=== PATIENT | female | born 2000 | race Two or more races ===

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

== ENCOUNTER 2021-05-26 21:14 | Emergency (ER) | payer OTHER, SELFPAY ==
[2021-05-26 21:15] VITALS: BP 101/82; PULSE 86; RESP 18; TEMP 37.1; O2SAT 97; BMI 25.8
--- NOTE | 2021-05-26 21:35 | RAD_ITS ---
STUDY: X-RAY - RIGHT ANKLE REASON FOR EXAM: Female, 20 years old. Pain after trauma TECHNIQUE: 3 view(s) of the ankle. COMPARISON: 08/25/2019 FINDINGS: Surgical hardware in the distal tibia and fibula are free of complication Normal visualized distal tibia and fibula. Normal medial and lateral malleoli. Normal tibiotalar articulation and ankle mortise. Normal visualized talus and calcaneus. The visualized subtalar, talonavicular, calcaneocuboid and tarsal articulations are normal. The soft tissue structures are unremarkable. RAD/Ankle min 3 Views IMPRESSION: No acute fracture or suspicious osseous lesion Surgical hardware in the distal tibia and fibula free of complication Electronically Signed: Todd Rivera MD at 21:54 EST , Service support ,
--- NOTE | 2021-05-26 22:06 | ED.VIS.LOWEX ---
HPI History of Present Illness Chief Complaint: Lower Extremity Injury Narrative Narrative: Patient inverted her right ankle. She has a history of prior fracture from ice skating with subsequent hardware. She has no other injuries. No proximal fibular pain or knee pain. PFSH PFSH Home Medications ibuprofen 600 mg PO 4X/DAY #30 tab 07/29/19 [Rx Last Taken Unknown] Allergy/AdvReac Type Severity Reaction Status Date / Time No Known Allergies Allergy Verified 05/26/21 21:17 Social History Smoking Status: Never smoker ROS ROS ED ROS Narrative Past medical history: none Medications: Reviewed Social history: Noncontributory Review of systems: Musculoskeletal: Ankle pain Skin: No abrasions or lacerations Neurological: No weakness or paresthesias Hematologic: No easy bleeding or easy bruising EXAM Physical Exam Narrative Exam Narrative: Physical exam General: Patient does not appear in significant distress . Head: Normocephalic, Atraumatic Neck: No C-spine tenderness Cardiovascular: Normal distal pulses Back: Nontender, Normal Inspection. Extremities: Right ankle shows lateral malleolus swelling. No foot pain. No proximal fibular tenderness. Skin: No abrasions, no lacerations Neurological: Normal strength and sensation Const Vital Signs: 05/26/21 21:15 Temperature 98.8 F Temperature Source Temporal Pulse Rate 86 Respiratory Rate 18 Blood Pressure 101/82 H Blood Pressure Mean 88 Pulse Ox 97 Oxygen Delivery Method Room Air MDM MDM MDM Narrative Medical decision making narrative: Patient has a normal x-ray I will treat conservatively and discharged in stable condition. Radiography Diagnostic Testing: Clinical Impression(s) from Imaging Studies Ankle X-Ray 05/26/21 21:35 IMPRESSION: No acute fracture or suspicious osseous lesion Surgical hardware in the distal tibia and fibula free of complication Electronically Signed: Todd Rivera MD at 21:54 EST , Service support , X-ray read by me and the radiologist does not show any fracture. There is some soft tissue swelling. Hardware appears to be intact Discharge Plan Triage Chief Complaint: Lower Extremity Injury ED Provider: Gilberto Fraser Dx/Rx/DC Orders Clinical Impression: Ankle sprain Instructions: Treating?Strains and Sprains Prescriptions: No Action ibuprofen 600 MG tablet 600 mg PO 4X/DAY Qty: 30 RF: 0 Primary Care Provider: Care Physician,No Primary Referrals: Care Physician,No Primary [Primary Care Provider] - 3-5 Days Disposition Disposition: Home, Self Care
== END 2021-05-26 22:22 | disposition home or self-care (01) ==
PROVIDERS: Emergency Provider Emergency Medicine
DX: S93.401A Sprain of unspecified ligament of right ankle, initial encounter (principal); X50.1XXA Overexertion from prolonged static or awkward postures, initial encounter
CPT/HCPCS: 73610; 99283

== ENCOUNTER 2021-06-28 12:09 | Emergency (ER) | payer OTHER, SELFPAY ==
[2021-06-28 12:09] VITALS: BP 102/73; PULSE 83; RESP 18; TEMP 36.2; O2SAT 99; BMI 26.1
--- NOTE | 2021-06-28 12:21 | CT_ITS ---
STUDY: CT ABDOMEN AND PELVIS WITHOUT CONTRAST REASON FOR EXAM: Female, 20 years old. Pain RADIATION DOSAGE (If Supplied By Facility): CTDIvol = ( 10.38 ) mGy, DLP = ( 523.86 ) mGycm TECHNIQUE: Transaxial images were obtained from the dome of the diaphragm to the symphysis pubis without oral contrast, and without intravenous contrast. Sagittal and coronal images were reconstructed. Individualized dose optimization techniques were used for this CT. COMPARISON: None. FINDINGS: The visualized lung bases are unremarkable. The visualized portions of the heart are within normal limits. Normal liver. Normal gallbladder and extrahepatic biliary system. Normal spleen. Normal pancreas. Normal bilateral adrenal glands. Normal right kidney. Normal left kidney. Normal visualized stomach. Normal small intestine. Normal colon. The appendix is visualized and appears normal. Normal abdominal aorta. Normal inferior vena cava. Normal retroperitoneum. Normal urinary bladder. 7 cm oval mass of water attenuation of the right-sided pelvis consistent with a corpus luteum cyst, physiologic cyst, par ovarian cyst, or cystadenoma. Correlation with pelvic ultrasound would be useful. Normal abdominal wall. Normal osseous structures. CT/Abdomen/Pelvis without Cont IMPRESSION: 7 cm right corpus luteum cyst, physiologic cyst, par ovarian cyst, or cystadenoma. Correlation with pelvic ultrasound may be useful. Electronically Signed: Joseluis Evans MD at 13:46 EST Tel , Service support ,
--- NOTE | 2021-06-28 12:22 | EX.ED.DYSGE1 ---
HPI History of Present Illness Chief Complaint: Abd Pain Informant: patient Narrative Narrative: Patient presents with actually left-sided abdominal pain. The triage note says right. But when I asked her about the right side she states is on the other side and she stated it wrong. She felt fine yesterday. She did eat a lot more food than normal last night but had no problems. She went to bed fine. She woke up with her alarm this morning. When she woke up the pain was there but it did not wake her up. It has been waxing and waning since then. When the pain is bad she gets nauseated. She has not vomited. She states it is getting a little bit better now. It is in the left lower quadrant and left flank. She denies any urinary symptoms. She has never had kidney stone. She has no history of any abdominal surgery. Last menstrual cycle was normal about 2-1/2 to 3 weeks ago. No pelvic discharge or bleeding or pain. Nothing specifically makes the pain better or worse. She has never had it before. PFSH PFSH Home Medications ibuprofen 600 mg PO 4X/DAY #30 tab 07/29/19 [Rx Last Taken Unknown] naproxen [Naprosyn] 500 mg PO BID PRN #20 tab 06/28/21 [Rx Last Taken Unknown] ondansetron 4 mg PO Q8H PRN #10 tab 06/28/21 [Rx Last Taken Unknown] Allergy/AdvReac Type Severity Reaction Status Date / Time No Known Allergies Allergy Verified 06/28/21 12:11 Surgical History (Updated 06/28/21 @ 12:40 by Vy Kelly) History of ankle surgery Social History Smoking Status: Never smoker ROS ROS ED Constitutional Constitutional ED: Denies chills or fever(s) ENT ENT ED: Denies rhinorrhea Cardiovascular Cardiovascular: Denies chest pain or palpitations Respiratory/Chest Respiratory/Chest: Denies cough, dyspnea or sputum Gastrointestinal Gastrointestinal: Reports abdominal pain and nausea; Denies constipation, diarrhea, melena or vomiting Genitourinary Genitourinary ED: Denies dysuria, hematuria or urinary frequency Musculoskeletal Musculoskeletal: Reports back pain and other Details: Left flank pain. ; Denies arthralgias, myalgias or neck pain Integumentary Denies rash Neurologic Neurologic: Denies headache(s) or weakness Psychiatric Psychiatric: Denies anxiety or depression Endocrine Endocrinology: Denies polydipsia or polyuria Allergic/Immunologic Allergic/Immunologic ED: Denies urticaria EXAM Physical Exam Const Vital Signs: 06/28/21 12:09 06/28/21 14:57 06/28/21 16:12 Temperature 97.1 F L Temperature Source Temporal Pulse Rate 83 74 67 Respiratory Rate 18 14 16 Blood Pressure 102/73 110/61 110/61 Blood Pressure Mean 82 77 77 Pulse Ox 99 99 99 Oxygen Delivery Method Room Air Patient does look uncomfortable. However, she just had an IV placed and she was quite nervous about this. Positive well nourished and well developed General Appearance ED: well developed HEENT Reports moist mucous membranes Negative for trauma or tenderness Eyes General Eye ED: Negative for pale conjunctiva or scleral icterus Neck no JVD Chest Wall inspection of chest normal Resp normal respiratory effort and clear to auscultation bilaterally Effort and Inspection: Negative for pain with movement Auscultation: Negative for rales, rhonchi or wheezes Cardio regular rate and regular rhythm GI normal to inspection, nondistended, normoactive bowel sounds GI Narrative: Patient had some very mild left lower quadrant tenderness. No rebound or guarding. No tenderness down into the pelvic area. She does have some CVA tenderness though. Palpation: soft Back/Spine Negative for no CVA tenderness Back/Spine Narrative: No rash or vesicles seen. General Back: CVA tenderness Extremity normal to inspection General Extremety ED: Negative for edema or tenderness General Extremity: Negative for edema Neuro Sensorium / Orientation: alert Skin no rashes or lesions noted MDM MDM MDM Narrative Medical decision making narrative: Patient's CBC shows normal white count hemoglobin and platelets. Electrolytes show no marked abnormalities. Glucose is normal. is negative. Urinalysis shows squamous epithelial cells but no sign of infection. CT scan shows a 7 cm right-sided cyst. I went back and talked with the patient. Her pain is really on the left. When I press on the right she states she feels little pressure but it does not hurt. Again, she denies vaginal bleeding or discharge. However, it is possible to have pain opposite the side of a torsion or other pathology. For this reason we did do ultrasound because of the size of the cyst. It does verify cyst but there is no indication of torsion. On recheck patient is comfortable. I will get her home on meds for pain. I will get her something for nausea in case that recurs. We discussed returning if her pain increases, she develops fever, vomiting or other symptoms. Lab Data Attestation: I reviewed the patient's lab results. Labs: Laboratory Results - last 24 hr 06/28/21 06/28/21 06/28/21 12:15 12:15 12:15 WBC 8.3 RBC 4.81 Hgb 13.4 Hct 40.1 MCV 83.4 MCH 27.9 MCHC 33.4 RDW Std Deviation 38.6 RDW Coeff of Tyree 12.8 Plt Count 252 MPV 9.5 Immature Gran % (Auto) 0.200 Neut % (Auto) 64.0 Lymph % (Auto) 29.4 [place] % (Auto) 5.5 Eos % (Auto) 0.4 Baso % (Auto) 0.5 Absolute Neuts (auto) 5.3 Absolute Lymphs (auto) 2.45 Nucleated RBC % 0 Sodium 140 Potassium 4.0 Chloride 109 H Carbon Dioxide 25.0 Anion Gap 6 BUN 10 Creatinine 0.74 Estim Creat Clear Calc 123.35 Est GFR (MDRD) Af Amer 130 Est GFR (MDRD) Non-Af 107 BUN/Creatinine Ratio 13.6 Glucose 93 Calcium 9.0 Serum , Qual NEGATIVE Urine Color Urine Clarity Urine pH Ur Specific [place] [employer] Urine Protein Urine Glucose (UA) Urine Ketones Urine Occult Blood Urine Nitrite Urine Bilirubin Urine Urobilinogen Ur Leukocyte Esterase Urine RBC Urine WBC Ur Squamous Epith Cells Urine Bacteria Urine Mucus 06/28/21 13:52 WBC RBC Hgb Hct MCV MCH MCHC RDW Std Deviation RDW Coeff of Tyree Plt Count MPV Immature Gran % (Auto) Neut % (Auto) Lymph % (Auto) [place] % (Auto) Eos % (Auto) Baso % (Auto) Absolute Neuts (auto) Absolute Lymphs (auto) Nucleated RBC % Sodium Potassium Chloride Carbon Dioxide Anion Gap BUN Creatinine Estim Creat Clear Calc Est GFR (MDRD) Af Amer Est GFR (MDRD) Non-Af BUN/Creatinine Ratio Glucose Calcium Serum , Qual Urine Color Yellow Urine Clarity Clear Urine pH 8.0 Ur Specific [place] [employer] 1.010 Urine Protein Negative Urine Glucose (UA) Normal Urine Ketones Negative Urine Occult Blood Negative Urine Nitrite Negative Urine Bilirubin Negative Urine Urobilinogen Normal Ur Leukocyte Esterase Negative Urine RBC 0 SEEN Urine WBC 0 SEEN Ur Squamous Epith Cells 10-25 SEEN Urine Bacteria 1+ Urine Mucus 0 SEEN Radiography Diagnostic Testing: Clinical Impression(s) from Imaging Studies Abdomen/Pelvis CT 06/28/21 12:21 IMPRESSION: 7 cm right corpus luteum cyst, physiologic cyst, par ovarian cyst, or cystadenoma. Correlation with pelvic ultrasound may be useful. Electronically Signed: Joseluis Evans MD at 13:46 EST Tel , Service support , Transvaginal US 06/28/21 14:17 IMPRESSION: 7 cm right corpus luteum cyst, physiologic cyst, par ovarian cyst, or cystadenoma. No ovarian torsion. Electronically Signed: Joseluis Evans MD at 16:09 EST Tel , Service support , Discharge Plan Triage Chief Complaint: Abd Pain ED Provider: Philip Slater Dx/Rx/DC Orders Clinical Impression: Acute abdominal pain in left flank, Ovarian cyst Instructions: Abdominal Pain, ED Ovarian Cyst Prescriptions: New ondansetron 4 mg tablet,disintegrating 4 mg PO Q8H PRN (Reason: nausea and vomiting) Qty: 10 RF: 0 naproxen [Naprosyn] 500 mg tablet 500 mg PO BID PRN (Reason: pain) Qty: 20 RF: 0 No Action ibuprofen 600 MG tablet 600 mg PO 4X/DAY Qty: 30 RF: 0 Primary Care Provider: Care Physician,No Primary Referrals: Leni Neri DO [STAFF PHYSICIAN] - 3-5 Days Care Physician,No Primary [Primary Care Provider] - Disposition Disposition: Home, Self Care
[2021-06-28] MEDS: Morphine 4 MG/ML Syringe IV ×2 (12:34→14:51)
[2021-06-28] MEDS: Ondansetron 4 MG/2 ML Vial IV (12:34)
[2021-06-28] MEDS: 0.9% Normal Saline 1,000 ML 1000 ML IV (12:35)
[2021-06-28 12:36] LABS: Absolute Lymphocyte Count 2.45 X10^3/uL (0.83-4.51); Absolute Neutrophil Count 5.3 X10^3/uL (2.0-7.7); Basophil# 0.04 X10^3/uL; Basophil% 0.5 % (0-1); Eosinophil# 0.03 X10^3/uL; Eosinophils% 0.4 % (0-5); Hematocrit 40.1 % (37-47); Hemoglobin 13.4 g/dL (12.0-15.0); Lymphocyte # 2.45 X10^3/ul (0.83-4.51); Lymphocyte % 29.4 % (19-41); Mean Corp Hgb Conc 33.4 g/dL (32-36); Mean Corpuscular Hgb 27.9 pg (27.0-32.0); Mean Corpuscular Volume 83.4 fL (81-99); Mean Platelet Vol. 9.5 fl (6.2-12.0); Monocyte# 0.46 X10^3/uL; Monocyte% 5.5 % (0-10); NRBC Flagged by Analyzer 0 % (0-5); Neutrophil # 5.34 X10^3/uL (2.7-7.7); Platelet Count 252 K/mm3 (150-450); RBC Distribution Width CV 12.8 % (11.6-14.6); RBC Distribution Width SD 38.6 fl (35.1-43.9); Red Blood Count 4.81 M/mm3 (4.2-5.4); White Blood Count 8.3 K/mm3 (4.4-11.0)
--- NOTE | 2021-06-28 12:41 | ED.RN ---
pain to abd around to rt flank. placed warm blankets to flank/side and lower abd
[2021-06-28 12:44] LABS: Internal QC Validated? YES +Cl - CLEAR BKGD; Pregnancy, Serum, hCG Quali. NEGATIVE Negative
[2021-06-28 12:49] LABS: Anion Gap 6 (5-15); BUN 10 mg/dL (7-18); BUN/Creat Ratio 13.6 RATIO (10-20); Chloride 109 mmol/L (98-107); Creatinine, Serum 0.74 mg/dL (0.55-1.02); EST Glomerular Filtration Rate 107 mL/min (>60); Est Glom Filt Rate - Afr Amer 130 mL/min (>60); Estimated Creatinine Clearance 123.35 ml/min; Glucose 93 mg/dL (74-106); Sodium Level 140 mmol/L (136-145)
[2021-06-28 14:04] LABS: Mucous, Urine 0 SEEN /hpf (<or=2+); Red Blood Cells-Urine 0 SEEN /hpf (0-5); White Blood Cells 0 SEEN /hpf (0-5)
[2021-06-28 14:12] LABS: Color, Urine Yellow (Yellow); Glucose, Dipstick Normal (Normal); Ketone-Dipstick Negative (Negative); Leukocyte Esterase-Dipstick Negative /ul (Negative); Nitrite-Dipstick Negative (Negative); Occult Blood-Urine Negative /ul (Negative); Protein-Dipstick Negative (Negative); Urine Bilirubin Dipstick Negative (Negative); Urine Clarity Clear (Clear); Urine Urobilinogen Normal (Normal)
--- NOTE | 2021-06-28 14:17 | US_ITS ---
STUDY: ULTRASOUND TRANSVAGINAL CLINICAL: Female, 20 years old. Ovarian cyst rule out torsion TECHNIQUE: Transvaginal COMPARISON: CT earlier today FINDINGS: Normal uterine size measuring 7.4 x 4.9 x 3.9 cm in maximal craniocaudal dimension. There are no myometrial masses. Normal endometrial thickness measuring 6 mm. There are no endometrial masses, and there is no fluid in the endometrial cavity. Normal uterine cervix. Enlarged right ovary, measuring 8.9 x 6.5 x 6.9 cm. There is a 7 cm oval anechoic mass with increased through transmission consistent with a corpus luteum cyst, physiologic cyst, par ovarian cyst, or cystadenoma.. Normal left ovary, measuring 4.0 x 3.4 x 3.4 cm. There are multiple follicles without a dominant cyst. There is a small amount of free fluid in the pelvis. Polycystic ovary disease: No. US/Transvaginal Non- IMPRESSION: 7 cm right corpus luteum cyst, physiologic cyst, par ovarian cyst, or cystadenoma. No ovarian torsion. Electronically Signed: Joseluis Evans MD at 16:09 EST Tel , Service support ,
[2021-06-28 14:19] LABS: Bacteria 1+ /hpf (None Seen); Squamous Epithelial Cells - UA 10-25 SEEN /hpf (5-10)
[2021-06-28 14:57] VITALS: BP 110/61; PULSE 74; RESP 14; O2SAT 99
[2021-06-28 16:12] VITALS: BP 110/61; PULSE 67; RESP 16; O2SAT 99
[2021-06-28 16:40] VITALS: BP 112/61; PULSE 62; RESP 16; O2SAT 99
== END 2021-06-28 16:42 | disposition home or self-care (01) ==
PROVIDERS: Emergency Provider Emergency Medicine
DX: R10.32 Left lower quadrant pain (principal); N83.201 Unspecified ovarian cyst, right side
CPT/HCPCS: 74176; 76830; 80048; 81001; 84703; 85025; 93976; 96374; 96375; 96376; 99284; J7030; A4216; J2405

== ENCOUNTER 2021-09-05 11:01 | Outpatient (CLI) | payer OTHER, SELFPAY | END 2021-09-05 23:59 | disposition home or self-care (01) | LOC: IMMUN 09-09 11:02 | PROVIDERS: Visit Provider Family Medicine | DX: Z23 Encounter for immunization (principal) ==

== ENCOUNTER 2021-11-23 15:25 | Emergency (ER) | payer OTHER, SELFPAY ==
[2021-11-23 15:26] VITALS: BP 110/79; PULSE 115; RESP 22; TEMP 36.6; O2SAT 92; BMI 26.7
--- NOTE | 2021-11-23 15:59 | EDS_ITS ---
HPI History of Present Illness Chief Complaint: Flank Pain Informant: patient Onset/Context/Timing Onset: Yesterday Context: Gradual Onset Timing: Continuous Quality: Sharp, dull Location: Left flank and left lower quadrant Worsened by: Nothing Relieved by: Nothing Narrative Narrative: Patient presents with left flank pain that began last evening. Patient states it is gradually getting worse. Patient states the pain is constant. Patient states the pain is sharp at times and dull at times. Patient states pain is over the left flank and left lower quadrants. Patient states nothing makes it better nothing makes it worse. Patient denies any fevers or chills. Patient denies any nausea or vomiting. Patient denies any dysuria or hematuria. [facility] Medical History (Updated 11/23/21 @ 19:[address] Duane Howell DO) Depression Home Medications bupropion HCl 200 mg PO DAILY 11/23/21 [History Last Taken Unknown] hydrocodone-acetaminophen 1 tab PO Q6H PRN PRN 3 Days #10 tablet 11/23/21 [Rx Last Taken Unknown] lamotrigine 100 mg PO QHS 11/23/21 [History Last Taken Unknown] Allergy/AdvReac Type Severity Reaction Status Date / Time No Known Allergies Allergy Verified 11/23/21 15:26 Surgical History History of ankle surgery Social History Smoking Status: Never smoker ROS ROS ED Constitutional Constitutional ED: Denies chills or fever(s) Eyes Eyes: Denies blurry vision or change in vision ENT ENT ED: Denies rhinorrhea or sore throat Cardiovascular Cardiovascular: Denies chest pain or palpitations Respiratory/Chest Respiratory/Chest: Denies cough or dyspnea Gastrointestinal Gastrointestinal: Reports abdominal pain; Denies nausea or vomiting Genitourinary Genitourinary ED: Denies dysuria or hematuria Musculoskeletal Musculoskeletal: Denies back pain or neck pain Integumentary Denies abscess or rash Neurologic Neurologic: Denies headache(s) or weakness Allergic/Immunologic Allergic/Immunologic ED: Denies mouth swelling or urticaria EXAM Physical Exam Const Vital Signs: 11/23/21 15:26 11/23/21 16:59 Temperature 97.9 F Temperature Source Temporal Pulse Rate 115 H Respiratory Rate 22 H Respiratory Effort Normal Non-Labored Respiratory Pattern Normal Blood Pressure 110/79 Blood Pressure Mean 89 Pulse Ox 92 Oxygen Delivery Method Room Air Positive well nourished and well developed General Appearance ED: well developed HEENT Reports moist mucous membranes Neck supple and no JVD Resp normal respiratory effort and clear to auscultation bilaterally Cardio regular rate, regular rhythm and no murmurs GI normal to inspection, nondistended, normoactive bowel sounds Palpation: soft and tender LLQ; Negative for guarding or rebound tenderness present Back/Spine General Back: CVA tenderness left Extremity normal to inspection General Extremety ED: Negative for edema or tenderness General Extremity: Negative for edema Neuro oriented x3, CN's II-XII intact bilaterally and no sensory deficits noted Sensorium / Orientation: alert Motor Exam: strength 5/5 throughout Psych mental status grossly normal Skin no rashes or lesions noted MDM MDM MDM Narrative Medical decision making narrative: Patient was given IV fluids, morphine, and Zofran. CBC was within normal limits. Comprehensive metabolic profile was normal. Serum hCG was negative. Urinalysis does not show any evidence of urinary tract infection or hematuria. CT scan of the abdomen and pelvis was obtained. There is no evidence of ureteral calculus or urinary obstruction. There is a large right ovarian cyst measuring 7.8 cm in diameter. There is also a small left ovarian cyst measuring 1.9 cm in diameter. There is mild constipation. This was interpreted by the radiologist and reviewed by myself. Prior to CT scan, patient told nursing staff that her pain was starting to return. Patient was given a repeat dose of morphine. On reevaluation, patient states she is feeling better. Patient was given a prescription for a short course of [place]. Patient was instructed to follow-up with her primary care physician and [employer] in 3 to 5 days. Patient understood and was agreeable with the plan. All questions were answered. Lab Data Attestation: I reviewed the patient's lab results. Labs: Laboratory Results - last 24 hr 11/23/21 11/23/21 11/23/21 16:20 16:20 16:20 WBC 7.3 RBC 5.36 Hgb 15.1 H Hct 43.7 MCV 81.5 MCH 28.2 MCHC 34.6 RDW Std Deviation 36.5 RDW Coeff of Tyree 12.3 Plt Count 273 MPV 9.2 Immature Gran % (Auto) 0.300 Neut % (Auto) 59.5 Lymph % (Auto) 32.4 [place] % (Auto) 6.8 Eos % (Auto) 0.7 Baso % (Auto) 0.3 Absolute Neuts (auto) 4.3 Absolute Lymphs (auto) 2.35 Nucleated RBC % 0 Sodium 139 Potassium 3.7 Chloride 106 Carbon Dioxide 25.0 Anion Gap 8 BUN 8 Creatinine 0.80 Estim Creat Clear Calc 105.01 Est GFR (MDRD) Af Amer 118 Est GFR (MDRD) Non-Af 97 BUN/Creatinine Ratio 10.0 Glucose 82 Calcium 9.4 Total Bilirubin 1.00 AST 14 L ALT 22 Alkaline Phosphatase 73 Total Protein 7.8 Albumin 4.4 Globulin 3.4 Albumin/Globulin Ratio 1.3 Serum , Qual NEGATIVE Urine Color Urine Clarity Urine pH Ur Specific [place] Urine Protein Urine Glucose (UA) Urine Ketones Urine Occult Blood Urine Nitrite Urine Bilirubin Urine Urobilinogen Ur Leukocyte Esterase Urine RBC Urine WBC Ur Squamous Epith Cells Urine Bacteria Urine Mucus 11/23/21 17:58 WBC RBC Hgb Hct MCV MCH MCHC RDW Std Deviation RDW Coeff of Tyree Plt Count MPV Immature Gran % (Auto) Neut % (Auto) Lymph % (Auto) [place] % (Auto) Eos % (Auto) Baso % (Auto) Absolute Neuts (auto) Absolute Lymphs (auto) Nucleated RBC % Sodium Potassium Chloride Carbon Dioxide Anion Gap BUN Creatinine Estim Creat Clear Calc Est GFR (MDRD) Af Amer Est GFR (MDRD) Non-Af BUN/Creatinine Ratio Glucose Calcium Total Bilirubin AST ALT Alkaline Phosphatase Total Protein Albumin Globulin Albumin/Globulin Ratio Serum , Qual Urine Color Yellow Urine Clarity Clear Urine pH 7.0 Ur Specific [place] 1.010 Urine Protein Negative Urine Glucose (UA) Normal Urine Ketones 50 H Urine Occult Blood Negative Urine Nitrite Negative Urine Bilirubin Negative Urine Urobilinogen Normal Ur Leukocyte Esterase Negative Urine RBC 0 SEEN Urine WBC 0 SEEN Ur Squamous Epith Cells 0-5 SEEN Urine Bacteria 0 SEEN Urine Mucus 0 SEEN Radiography Diagnostic Testing: Clinical Impression(s) from Imaging Studies Abdomen/Pelvis CT 11/23/21 16:02 IMPRESSION: 1. Normal kidneys without obstructive uropathy. No pyelonephritis. Normal bladder without evidence of a cystitis. 2. Large 7.8 cm diameter right ovarian simple cyst. Smaller 1.9 cm diameter left ovarian simple cyst. 3. Normal uterus-chest deviated towards the left. 4. Mild constipation. 5. No appendicitis, diverticulitis, colitis, or intestinal obstruction. 6. No other significant abnormalities are present. Electronically Signed: Musa Redman MD at 18:02 EDT , Discharge Plan Triage Chief Complaint: Flank Pain ED Provider: Duane Howell Dx/Rx/DC Orders Clinical Impression: Left lower quadrant abdominal pain, Ovarian cyst Instructions: ED Abdominal Pain Unkn Cause Fem, ED Ovarian Cyst Prescriptions: New hydrocodone-acetaminophen [hydrocodone-acetaminophen] 1 TABLET tablet 1 tab PO Q6H PRN PRN (Reason: Pain) 3 Days Qty: 10 RF: 0 No Action bupropion HCl 100 mg tablet 200 mg PO DAILY RF: 0 lamotrigine 100 mg tablet 100 mg PO QHS RF: 0 Primary Care Provider: Care Physician,No Primary Referrals: Lesia Aaron MD [STAFF PHYSICIAN] - 3-5 Days Bianca Bai DO [STAFF PHYSICIAN] - 3-5 Days Care Physician,No Primary [Primary Care Provider] - Disposition Disposition: Home, Self Care
--- NOTE | 2021-11-23 16:02 | CT_ITS ---
STUDY: CT ABDOMEN AND PELVIS WITHOUT CONTRAST ENHANCEMENT OF 1718 HOURS ON 11/23/2021 REASON FOR EXAM: 21-year-old female with left flank pain. RADIATION DOSAGE (If Supplied By Facility): CTDIvol = ( 7.64 ) mGy, DLP = ( 370.10 ) mGycm TECHNIQUE: Transaxial images were obtained from the dome of the diaphragm to the symphysis pubis without oral contrast, and without intravenous contrast. Sagittal and coronal images were reconstructed. COMPARISON: 06/28/2021. FINDINGS: The visualized lung bases are unremarkable. The visualized portions of the heart are within normal limits. Normal liver. Normal gallbladder and extrahepatic biliary system; no cholelithiasis or cholecystitis.. Normal spleen. Normal pancreas; no pancreatitis or pancreatic mass lesions.. Normal bilateral adrenal glands. Normal kidneys without obstructive uropathy. No pyelonephritis. Normal visualized stomach. Normal small intestine. Mild constipation. No diverticulitis, colitis, intestinal obstruction The appendix is visualized and appears normal. No appendicitis. Normal abdominal aorta. Normal inferior vena cava. Normal retroperitoneum. Normal urinary bladder. No evidence of a cystitis. Presence of a large 7.8 cm diameter right ovarian cyst. There is a 1.9 cm simple left ovarian cyst. Normal uterus, deviated towards the left.. Normal abdominal wall. Normal osseous structures. CT/Abdomen/Pelvis without Cont IMPRESSION: 1. Normal kidneys without obstructive uropathy. No pyelonephritis. Normal bladder without evidence of a cystitis. 2. Large 7.8 cm diameter right ovarian simple cyst. Smaller 1.9 cm diameter left ovarian simple cyst. 3. Normal uterus-chest deviated towards the left. 4. Mild constipation. 5. No appendicitis, diverticulitis, colitis, or intestinal obstruction. 6. No other significant abnormalities are present. Electronically Signed: Musa Redman MD at 18:02 EDT ,
[2021-11-23] MEDS: Morphine 4 MG/ML Syringe IV ×2 (16:20→16:57)
[2021-11-23] MEDS: Ondansetron 4 MG/2 ML Vial IV (16:20)
[2021-11-23] MEDS: 0.9% Normal Saline 1,000 ML 1000 ML IV (16:21)
[2021-11-23 16:48] LABS: Internal QC Validated? YES +Cl - CLEAR BKGD; Pregnancy, Serum, hCG Quali. NEGATIVE Negative
[2021-11-23 16:49] LABS: Absolute Lymphocyte Count 2.35 X10^3/uL (0.83-4.51); Absolute Neutrophil Count 4.3 X10^3/uL (2.0-7.7); Basophil# 0.02 X10^3/uL; Basophil% 0.3 % (0-1); Eosinophil# 0.05 X10^3/uL; Eosinophils% 0.7 % (0-5); Hematocrit 43.7 % (37-47); Hemoglobin 15.1 g/dL (12.0-15.0); Lymphocyte # 2.35 X10^3/ul (0.83-4.51); Lymphocyte % 32.4 % (19-41); Mean Corp Hgb Conc 34.6 g/dL (32-36); Mean Corpuscular Hgb 28.2 pg (27.0-32.0); Mean Corpuscular Volume 81.5 fL (81-99); Mean Platelet Vol. 9.2 fl (6.2-12.0); Monocyte# 0.49 X10^3/uL; Monocyte% 6.8 % (0-10); NRBC Flagged by Analyzer 0 % (0-5); Neutrophil # 4.32 X10^3/uL (2.7-7.7); Neutrophil % 59.5 % (47-70); Platelet Count 273 K/mm3 (150-450); RBC Distribution Width CV 12.3 % (11.6-14.6); RBC Distribution Width SD 36.5 fl (35.1-43.9); Red Blood Count 5.36 M/mm3 (4.2-5.4); White Blood Count 7.3 K/mm3 (4.4-11.0)
[2021-11-23 16:57] LABS: ALB/GLOB Ratio 1.3 RATIO (0.9-2.4); AST(SGOT) 14 U/L (15-37); Alanine Aminotransfer ALT/SGPT 22 U/L (13-56); Albumin, Serum 4.4 g/dL (3.2-5.0); Alkaline Phosphatase 73 U/L (45-117); Anion Gap 8 (5-15); BUN 8 mg/dL (7-18); Calcium,Total 9.4 mg/dL (8.5-10.1); Chloride 106 mmol/L (98-107); EST Glomerular Filtration Rate 97 mL/min (>60); Est Glom Filt Rate - Afr Amer 118 mL/min (>60); Estimated Creatinine Clearance 105.01 ml/min; Globulin 3.4 g/dL (2.2-4.2); Glucose 82 mg/dL (74-106); Potassium 3.7 mmol/L (3.5-5.1); Protein, Total 7.8 g/dL (6.4-8.2); Sodium Level 139 mmol/L (136-145)
[2021-11-23 18:24] LABS: Bacteria 0 SEEN /hpf (None Seen); Mucous, Urine 0 SEEN /hpf (<or=2+); Red Blood Cells-Urine 0 SEEN /hpf (0-5); White Blood Cells 0 SEEN /hpf (0-5)
[2021-11-23 18:25] LABS: Color, Urine Yellow (Yellow); Glucose, Dipstick Normal (Normal); Ketone-Dipstick 50 mg/dl (Negative); Leukocyte Esterase-Dipstick Negative /ul (Negative); Nitrite-Dipstick Negative (Negative); Occult Blood-Urine Negative /ul (Negative); Protein-Dipstick Negative (Negative); Urine Bilirubin Dipstick Negative (Negative); Urine Clarity Clear (Clear); Urine Urobilinogen Normal (Normal)
[2021-11-23 18:31] LABS: Squamous Epithelial Cells - UA 0-5 SEEN /hpf (5-10)
[2021-11-23 19:14] VITALS: BP 112/84; PULSE 98; RESP 17; O2SAT 97
== END 2021-11-23 19:52 | disposition home or self-care (01) ==
PROVIDERS: Emergency Provider Emergency Medicine; Visit Provider Emergency Medicine
DX: N83.209 Unspecified ovarian cyst, unspecified side (principal); R10.32 Left lower quadrant pain; F32.A Depression, unspecified
CPT/HCPCS: 74176; 80053; 81001; 84703; 85025; 96361; 96374; 96375; 96376; 99284; J7030; A4216; J2405

== ENCOUNTER 2021-11-24 15:53 | Emergency (ER) | payer OTHER, SELFPAY ==
[2021-11-24 15:53] VITALS: PULSE 102; RESP 16; TEMP 36.3; O2SAT 99; BMI 27.5
[2021-11-24 16:41] VITALS: BP 114/65; PULSE 94; RESP 16; O2SAT 98
--- NOTE | 2021-11-24 16:49 | US_ITS ---
STUDY: ULTRASOUND TRANSVAGINAL CLINICAL: Female, 21 years old. pelvic pain TECHNIQUE: Transvaginal COMPARISON: CT 11/23/2021, ultrasound 06/28/2021 FINDINGS: Normal uterine size measuring 8.3 x 4.9 x 3.6 cm in maximal craniocaudal dimension. There are no myometrial masses. Normal endometrial thickness measuring 9 mm. There are no endometrial masses, and there is no fluid in the endometrial cavity. Normal uterine cervix. Normal right ovary, measuring 4.0 x 2.5 x 2.0 cm. There are multiple follicles without a dominant cyst. Normal left ovary, measuring 6.0 x 3.4 x 4.2 cm. There are multiple follicles without a dominant cyst. There is a small amount of free fluid in the pelvis. There is a 7 cm oval anechoic mass with increased transmission of the anterior fundus the uterus and adjacent to the right and left ovary. Differential diagnosis includes a physiologic cyst, par ovarian cyst, or cystadenoma. Follow-up ultrasound is recommended in one year. Polycystic ovary disease: No. US/Transvaginal Non- IMPRESSION: No change in the 7 cm simple cystic mass in the pelvis anterior to the fundus the uterus and adjacent to both ovaries. Differential diagnosis includes a physiologic cyst, par ovarian cyst, or cystadenoma. Follow-up ultrasound is recommended in one year. Electronically Signed: Joseluis Evans MD at 20:38 EDT ,
--- NOTE | 2021-11-24 16:51 | EX.ED.DYSGE1 ---
HPI History of Present Illness Chief Complaint: Abd Pain Narrative Narrative: Patient presents with left pelvic pain, she was seen yesterday and diagnosed with a simple right-sided ovarian cyst, she continues to have left-sided pelvic pain, she was given a [place] for analgesia but she is too nauseated to take it. She has no fever or chills. She is denying any dysuria or hematuria. She has no urinary symptoms otherwise. No vaginal bleeding. She had a full work-up yesterday including a negative test and blood work and CAT scan. [facility] Medical History Depression Ovarian cyst Home Medications bupropion HCl 200 mg PO DAILY 11/23/21 [History Last Taken Unknown] hydrocodone-acetaminophen 1 tab PO Q6H PRN PRN 3 Days #10 tablet 11/23/21 [Rx Last Taken Unknown] lamotrigine 100 mg PO QHS 11/23/21 [History Last Taken Unknown] ondansetron 4 mg PO Q8H PRN #20 tab 11/24/21 [Rx Last Taken Unknown] Allergy/AdvReac Type Severity Reaction Status Date / Time No Known Allergies Allergy Verified 11/24/21 15:56 Surgical History History of ankle surgery Social History Smoking Status: Never smoker ROS ROS ED ROS Narrative Past medical history: Reviewed Medications: Reviewed Social history: Noncontributory Review of systems: All systems negative except as indicated General: No fever Eyes: No visual changes ENT: No upper airway congestion, normal voice Neck: No neck pain Cardiovascular: No chest pain Respiratory: No shortness of breath or cough Gastrointestinal: As in HPI Genitourinary: As in HPI Musculoskeletal: Denies myalgias no difficulty with ambulation Skin: No rash Neurological: No memory loss, confusion or any focal weakness Psych: No recent behavioral changes Hematologic: No easy bleeding or easy bruising EXAM Physical Exam Narrative Exam Narrative: Physical exam General: Well nourished, Well developed, No Acute Distress Head: Normocephalic, Atraumatic Eyes: Conjunctiva not pale ENT: Moist mucous membranes Neck: Supple, Nontender, No lymphadenopathy Cardiovascular: Regular rate, Regular rhythm Respiratory: No distress, CTA bilaterally Abdomen: Soft, there is left-sided pelvic pain. No guarding or rebound. No CVA tenderness. : Deferred Back: Nontender, Normal Inspection. Negative for: CVA tenderness Extremities: Nontender, No edema Skin: Normal color, No rash Neurological: Alert, Normal Strength, Normal Sensation Psychological: Normal affect Const Vital Signs: 11/24/21 15:53 11/24/21 16:41 11/24/21 18:03 Temperature 97.4 F L Temperature Source Temporal Pulse Rate 102 H 94 98 Respiratory Rate 16 16 18 Blood Pressure 114/65 92/65 Blood Pressure Mean 81 74 Pulse Ox 99 98 99 Oxygen Delivery Method Room Air Room Air Room Air 11/24/21 19:41 11/24/21 21:16 Temperature Temperature Source Pulse Rate 72 89 Respiratory Rate 16 14 Blood Pressure 113/62 111/73 Blood Pressure Mean 79 85 Pulse Ox 66 98 Oxygen Delivery Method Room Air Room Air MDM MDM MDM Narrative Medical decision making narrative: Patient's ultrasound does not show any torsion, she improved after analgesia she tells me the biggest problem is that she has nausea with her pain medication. I will also give her Zofran. I will refer her to OB. Otherwise I believe she is safe for discharge. Lab Data Labs: Laboratory Results - last 24 hr 11/24/21 16:45 Urine Color Yellow Urine Clarity Cloudy Urine pH 6.0 Ur Specific [place] 1.020 Urine Protein 30 H Urine Glucose (UA) Normal Urine Ketones 150 A* Urine Occult Blood 25 H Urine Nitrite Negative Urine Bilirubin 1 H Urine Urobilinogen 4 H Ur Leukocyte Esterase Negative Urine RBC 0-5 SEEN Urine WBC 0-5 SEEN Ur Squamous Epith Cells 10-25 SEEN Urine Bacteria 2+ Urine Mucus 2+ Radiography Diagnostic Testing: Clinical Impression(s) from Imaging Studies Transvaginal US 11/24/21 16:49 IMPRESSION: No change in the 7 cm simple cystic mass in the pelvis anterior to the fundus the uterus and adjacent to both ovaries. Differential diagnosis includes a physiologic cyst, par ovarian cyst, or cystadenoma. Follow-up ultrasound is recommended in one year. Electronically Signed: Joseluis Evans MD at 20:38 EDT , Discharge Plan Triage Chief Complaint: Abd Pain ED Provider: Gilberto Fraser Dx/Rx/DC Orders Clinical Impression: Ovarian cyst, Pelvic pain Instructions: Ovarian Cysts, ED Abdominal Pain Unkn Cause Fem Prescriptions: New ondansetron 4 mg tablet,disintegrating 4 mg PO Q8H PRN (Reason: nausea and vomiting) Qty: 20 RF: 0 No Action bupropion HCl 100 mg tablet 200 mg PO DAILY RF: 0 lamotrigine 100 mg tablet 100 mg PO QHS RF: 0 hydrocodone-acetaminophen [hydrocodone-acetaminophen] 1 TABLET tablet 1 tab PO Q6H PRN PRN (Reason: Pain) 3 Days Qty: 10 RF: 0 Primary Care Provider: Care Physician,No Primary Referrals: Viry Fuentes DO [STAFF PHYSICIAN] - 2 Days Care Physician,No Primary [Primary Care Provider] - Disposition Disposition: Home, Self Care
[2021-11-24] MEDS: 0.9% Normal Saline 1,000 ML 1000 ML IV (17:00)
[2021-11-24] MEDS: Ketorolac 15 MG/ML Vial IV (17:01)
[2021-11-24] MEDS: Morphine 2 MG/ML Syringe IV (17:01)
[2021-11-24 17:37] LABS: Color, Urine Yellow (Yellow); Glucose, Dipstick Normal (Normal); Leukocyte Esterase-Dipstick Negative /ul (Negative); Nitrite-Dipstick Negative (Negative); Occult Blood-Urine 25 /ul (Negative); Protein-Dipstick 30 mg/dl (Negative); Urine Clarity Cloudy (Clear); Urine Urobilinogen 4 mg/dl (Normal)
[2021-11-24 17:46] LABS: Urine Bilirubin Dipstick 1 mg/dL (Negative)
[2021-11-24 17:47] LABS: Ketone-Dipstick 150 mg/dl (Negative)
[2021-11-24 17:49] LABS: Mucous, Urine 2+ /hpf (<or=2+)
[2021-11-24 17:50] LABS: Bacteria 2+ /hpf (None Seen); Red Blood Cells-Urine 0-5 SEEN /hpf (0-5); Squamous Epithelial Cells - UA 10-25 SEEN /hpf (5-10); White Blood Cells 0-5 SEEN /hpf (0-5)
[2021-11-24 18:03] VITALS: BP 92/65; PULSE 98; RESP 18; O2SAT 99
[2021-11-24] MEDS: Morphine 4 MG/ML Syringe IV (18:16)
[2021-11-24 19:41] VITALS: BP 113/62; PULSE 72; RESP 16; O2SAT 66
[2021-11-24 21:16] VITALS: BP 111/73; PULSE 89; RESP 14; O2SAT 98
== END 2021-11-24 21:29 | disposition home or self-care (01) ==
PROVIDERS: Emergency Provider Emergency Medicine; Visit Provider Emergency Medicine
DX: N83.209 Unspecified ovarian cyst, unspecified side (principal); R10.2 Pelvic and perineal pain; F32.A Depression, unspecified
CPT/HCPCS: 76830; 81001; 93976; 96361; 96374; 96375; 96376; 99282; J7030; A4216

== ENCOUNTER 2021-11-25 21:29 | Observation (INO) | payer OTHER, SELFPAY ==
[2021-11-25 21:30] VITALS: BP 132/82; PULSE 89; RESP 24; TEMP 36.1; O2SAT 97; BMI 27.5
[2021-11-25 21:32] VITALS: BP 132/82; PULSE 89; RESP 24; TEMP 36.1; O2SAT 97
--- NOTE | 2021-11-25 21:44 | US_ITS ---
We are attempting to reach an attending provider to discuss findings. An addendum with communication details will be sent when the communication is complete. STUDY: ULTRASOUND TRANSVAGINAL CLINICAL: Female, 21 years old. Question ovarian torsion. Known cyst. TECHNIQUE: Transvaginal COMPARISON: 11/24/2021. FINDINGS: The study is limited due to the patient''s inability to tolerate the exam secondary to significant pain. Normal uterine size measuring 7.6 x 3.4 cm in maximal craniocaudal dimension. There are no myometrial masses. Normal endometrial thickness measuring 12.3 mm. Endometrium is hyperechoic There are no endometrial masses, and there is no fluid in the endometrial cavity. Normal uterine cervix. Normal right ovary, measuring 4.4 x 2.2 x 2.3 cm. There are multiple follicles without a dominant cyst. Normal vascularity on DOPPLER imaging. Again seen is a large cystic structure adjacent to the ovary measuring 7 x 7.5 x 6.4 cm Normal left ovary, measuring 6.4 x 3.8 x 3.2 cm. There are multiple follicles without a dominant cyst. There is decreased vascularity on DOPPLER imaging. Question torsion. There is no free fluid in the pelvis. Polycystic ovary disease: No. US/Transvaginal Non- IMPRESSION: 1. Limited vascularity in the left ovary. Question torsion. 2. Normal vascularity of the right ovary. 3. Large cystic structure in the right adnexa adjacent to the ovary. 4. Prominent endometrium without other evidence of uterine abnormality. Electronically Signed: Barney Ramsey DO at 23:03 EDT ,
--- NOTE | 2021-11-25 21:51 | EX.ED.DYSGE1 ---
HPI History of Present Illness Chief Complaint: Abd Pain Informant: patient Narrative Narrative: Patient presents with lower abdominal pain. This started on the left but it does sometimes go to the right and then back to the left. She states she had the same thing over winter. She was diagnosed with a ovarian cyst. She followed up with an unknown SENIOR CATEGORY MANAGER physician. They recommended observation. She was doing fine until 3 days ago when she started to have pain. Nothing initiated it. She denies vaginal discharge or bleeding. No dysuria. Her last menstrual cycle was approximately the fourth of this month and normal timing. She has no fevers or chills. She has had some nausea and vomiting but this is mostly when she tries to take her pain meds. She states she really cannot take her meds because they cause her to vomit. She was given hydrocodone. She came back and was seen again yesterday. She was given Zofran. She was able to fill that this morning but it still cause some nausea with her pain meds. Her last pain med dose was approximately 6 or 7 hours ago. Nothing specifically makes her symptoms better or worse. [facility] Medical History Depression Ovarian cyst Home Medications bupropion HCl 200 mg PO DAILY 11/23/21 [History Last Taken Unknown] hydrocodone-acetaminophen 1 tab PO Q6H PRN PRN 3 Days #10 tablet 11/23/21 [Rx Last Taken Unknown] lamotrigine 100 mg PO QHS 11/23/21 [History Last Taken Unknown] ondansetron 4 mg PO Q8H PRN #20 tab 11/24/21 [Rx Last Taken Unknown] Allergy/AdvReac Type Severity Reaction Status Date / Time No Known Allergies Allergy Verified 11/24/21 15:56 Surgical History History of ankle surgery Social History Smoking Status: Never smoker ROS ROS ED Constitutional Constitutional ED: Denies chills or fever(s) ENT ENT ED: Denies rhinorrhea Cardiovascular Cardiovascular: Denies chest pain or palpitations Respiratory/Chest Respiratory/Chest: Denies cough, dyspnea or sputum Gastrointestinal Gastrointestinal: Reports abdominal pain, nausea and vomiting; Denies constipation, diarrhea or melena Genitourinary Genitourinary ED: Denies dysuria, hematuria or urinary frequency Musculoskeletal Musculoskeletal: Denies myalgias Integumentary Denies rash Neurologic Neurologic: Denies headache(s) Psychiatric Psychiatric: Denies depression Endocrine Endocrinology: Denies polydipsia or polyuria Allergic/Immunologic Allergic/Immunologic ED: Denies urticaria EXAM Physical Exam Const Vital Signs: 11/25/21 21:30 11/25/21 21:32 Temperature 96.9 F L 96.9 F L Temperature Source Temporal Temporal Pulse Rate 89 89 Respiratory Rate 24 H 24 H Blood Pressure 132/82 H 132/82 H Blood Pressure Mean 98 98 Pulse Ox 97 97 Oxygen Delivery Method Room Air Room Air Patient was initially crying when she came in. However she is actually quite calm now. Positive well nourished and well developed General Appearance ED: well developed HEENT Reports moist mucous membranes; Denies dry mucous membranes Mouth ED: No dry mucous membranes Mouth: No dry mucous membranes Eyes General Eye ED: Negative for pale conjunctiva or scleral icterus Neck No no JVD Chest Wall inspection of chest normal Resp normal respiratory effort and clear to auscultation bilaterally Cardio regular rate, regular rhythm and no murmurs GI normal to inspection, nondistended, normoactive bowel sounds GI Narrative: Patient does have some mild tenderness but right and left lower quadrant. She also has mild central tenderness. No rebound or guarding. No masses felt on exam. Palpation: soft Back/Spine no CVA tenderness Extremity normal to inspection General Extremety ED: Negative for edema or tenderness General Extremity: Negative for edema Neuro Sensorium / Orientation: alert Psych mental status grossly normal MDM MDM MDM Narrative Medical decision making narrative: Patient stated that she did have a pelvic exam here. However, I do not think these were done on initial exam. Because this is her third visit and she still having symptoms we will offer this at this visit. I did repeat patient's CBC. I did not repeat electrolytes as these were just done. was also negative. Ultrasound was repeated because she was having more pain. At this time it looks like she is having some torsion on the left ovary. The right is the one that has a large cyst next to it but the left is slightly larger than normal but does appear to have poor blood flow. I discussed the case with Dr. Duong who is coming in. I discussed case with the pat patient and told her that this is normally treated with surgery. She asked about hormonal therapy but I explained that this is not something that would correct this. We will get her more meds for pain. Patient has never had any intra-abdominal surgery. She has never been before. She had ankle surgery and no problems with anesthesia. Her last meal was an apple approximately 11 hours ago. That is the only thing she has eaten in the last 24 hours. Lab Data Attestation: I reviewed the patient's lab results. Labs: Laboratory Results - last 24 hr 11/25/21 11/25/21 21:55 21:55 WBC 10.0 RBC 5.01 Hgb 13.9 Hct 41.4 MCV 82.6 MCH 27.7 MCHC 33.6 RDW Std Deviation 36.3 RDW Coeff of [place] 12.1 Plt Count 292 MPV 9.4 Immature Gran % (Auto) 0.400 Neut % (Auto) 76.5 H Lymph % (Auto) 18.2 L [place] % (Auto) 4.6 Eos % (Auto) 0.0 Baso % (Auto) 0.3 Absolute Neuts (auto) 7.6 Absolute Lymphs (auto) 1.82 Nucleated RBC % 0 Serum , Qual NEGATIVE Radiography Diagnostic Testing: Clinical Impression(s) from Imaging Studies Transvaginal US 11/25/21 21:44 IMPRESSION: 1. Limited vascularity in the left ovary. Question torsion. 2. Normal vascularity of the right ovary. 3. Large cystic structure in the right adnexa adjacent to the ovary. 4. Prominent endometrium without other evidence of uterine abnormality. Electronically Signed: Barney Ramsey DO at 23:03 EDT Reading Location ID and State: [address] [place] [address] Tel [phone], Service support , ADDENDUM: 11/25/21 4584 IMPRESSION: 1. Limited vascularity in the left ovary. Question torsion. 2. Normal vascularity of the right ovary. 3. Large cystic structure in the right adnexa adjacent to the ovary. 4. Prominent endometrium without other evidence of uterine abnormality. N.B. : The above Results were Read Back by Barney Ramsey DO to Dr. Bryon MD, and understanding confirmed on 11/25/2021 23:07:48 (ET). Electronically Signed: Barney Ramsey DO at 23:03 EDT Reading Location ID and State: [address] [place] [address] Tel [phone], Service support , Discharge Plan Triage Chief Complaint: Abd Pain ED Provider: Philip Slater Dx/Rx/DC Orders Clinical Impression: Torsion of left ovary Prescriptions: No Action bupropion HCl 100 mg tablet 200 mg PO DAILY RF: 0 lamotrigine 100 mg tablet 100 mg PO QHS RF: 0 hydrocodone-acetaminophen [hydrocodone-acetaminophen] 1 TABLET tablet 1 tab PO Q6H PRN PRN (Reason: Pain) 3 Days Qty: 10 RF: 0 ondansetron 4 mg tablet,disintegrating 4 mg PO Q8H PRN (Reason: nausea and vomiting) Qty: 20 RF: 0 Primary Care Provider: Care Physician,No Primary Referrals: Care Physician,No Primary [Primary Care Provider] - Disposition Disposition: Acute Care Hospital
[2021-11-25] MEDS: Ketorolac 15 MG/ML Vial IV (21:58)
[2021-11-25] MEDS: 0.9% Normal Saline 1,000 ML 999 ML IV (21:58)
[2021-11-25] MEDS: Ondansetron 4 MG/2 ML Vial IV (21:59)
[2021-11-25 22:20] LABS: Internal QC Validated? YES +Cl - CLEAR BKGD; Pregnancy, Serum, hCG Quali. NEGATIVE Negative
[2021-11-25 22:29] LABS: Absolute Lymphocyte Count 1.82 X10^3/uL (0.83-4.51); Absolute Neutrophil Count 7.6 X10^3/uL (2.0-7.7); Basophil# 0.03 X10^3/uL; Basophil% 0.3 % (0-1); Hematocrit 41.4 % (37-47); Hemoglobin 13.9 g/dL (12.0-15.0); Lymphocyte # 1.82 X10^3/ul (0.83-4.51); Lymphocyte % 18.2 % (19-41); Mean Corp Hgb Conc 33.6 g/dL (32-36); Mean Corpuscular Hgb 27.7 pg (27.0-32.0); Mean Corpuscular Volume 82.6 fL (81-99); Mean Platelet Vol. 9.4 fl (6.2-12.0); Monocyte# 0.46 X10^3/uL; Monocyte% 4.6 % (0-10); NRBC Flagged by Analyzer 0 % (0-5); Neutrophil # 7.63 X10^3/uL (2.7-7.7); Neutrophil % 76.5 % (47-70); Platelet Count 292 K/mm3 (150-450); RBC Distribution Width CV 12.1 % (11.6-14.6); RBC Distribution Width SD 36.3 fl (35.1-43.9); Red Blood Count 5.01 M/mm3 (4.2-5.4)
[2021-11-25 23:04] LABS: Red Blood Cells-Urine 0 SEEN /hpf (0-5); White Blood Cells 0 SEEN /hpf (0-5)
[2021-11-25 23:14] LABS: Color, Urine Yellow (Yellow); Glucose, Dipstick Normal (Normal); Leukocyte Esterase-Dipstick Negative /ul (Negative); Nitrite-Dipstick Negative (Negative); Occult Blood-Urine Negative /ul (Negative); Protein-Dipstick Negative (Negative); Urine Bilirubin Dipstick Negative (Negative); Urine Clarity Clear (Clear); Urine Urobilinogen 4 mg/dl (Normal)
[2021-11-25 23:20] LABS: Ketone-Dipstick 150 mg/dl (Negative)
[2021-11-25] MEDS: Morphine 4 MG/ML Syringe IV (23:24)
[2021-11-25 23:28] VITALS: BP 114/68; PULSE 75; RESP 18; TEMP 36.8; O2SAT 97; BMI 27.5
[2021-11-25 23:29] LABS: Bacteria 1+ /hpf (None Seen); Mucous, Urine RARE /hpf (<or=2+); Squamous Epithelial Cells - UA 0-5 SEEN /hpf (5-10)
[2021-11-26] VITALS (10 sets, daily range): BP systolic 98–144; BP diastolic 45–122; PULSE 75–109; RESP 16–18; TEMP 36.4–36.9; O2SAT 95–100; BMI 28.6
--- NOTE | 2021-11-26 | OV_PTH ---
PATIENT: ESTER DONAHUE LOC: [facility] U#:[id number] AGE/SX: 21/F ROOM: [facility] RE11/26/[address]: Dr. Stephany Duong MD : 2000 BED: 1 DIS: 11/26/2021 SPEC #: [id number] RECD: 11/26/21 10:28 STATUS: KELVIN HILDAAsael #: [id number] HUMPHREY: 11/26/21 00:[address]: Stephany Duong DEPT: SURGICAL PATHOLOGY RECD BY: Clay Pedroza ENTERED: 11/26/21 10:29 SP TYPE: OVARY OTHR DR: Daya Primary Care Phys Tissues: Left ovary Procedures: Surgery Specimen Level IV HEADER OPERATION: Laparoscopic left salpingo-oophorectomy PRE-OP DIAGNOSIS: Limited vascularity in left ovary; normal vascularity in right ovary TISSUE SUBMITTED: Left fallopian tube and ovary MICROSCOPIC DIAGNOSIS Left fallopian tube and ovary, salpingo-oophorectomy: Fallopian tube - focal congestion and hemorrhage and reactive changes. Ovary ? extensive hemorrhage and physiologic hemorrhagic cysts. Paratubal cyst (6.5 cm in greatest dimension). SARAH:gary 11/27/2021 MICROSCOPIC DESCRIPTION Slides are reviewed. GROSS DESCRIPTION Received in fixative is one container labeled with the patient's name and designated left fallopian tube and ovary. The specimen consists of a fallopian tube and adjacent paratubal cyst and detached ovary. The fallopian tube measures 7.5 cm in length and up to 1 cm in diameter. The fimbrial end is identified. Sections reveal unremarkable cut surfaces. A hightwoer nodule is noted adjacent to the fallopian tube measuring 0.4 cm in greatest dimension. The adjacent paratubal cyst measures 6.5 x 3 x 1 cm. It is collapsed and focally disrupted. The outer surface is inked black. The inner cyst wall is focally congested. No papillations are identified. The cyst wall measures 0.1 cm in thickness. The detached, partly disrupted ovary weighs 24 gm and measures 4.5 x 5 x 2 cm. The outer surface is inked black. Sections of the ovary reveal extensive congested and hemorrhagic cut surfaces. Multiple hemorrhagic cysts are also noted. The largest hemorrhagic cyst measures 2 cm in greatest dimension. Size Changer sections are submitted in eight cassettes as follows: 1 ? fallopian tube, 2 & 3 ? paratubal cyst (2 also contains the small nodule adjacent to the fallopian tube, 4-8 ? ovary. / SARAH:gary 11/26/2021 TC:5 CPT: 22322
--- NOTE | 2021-11-26 00:17 | PCM.HP.BLA ---
History and Physical Date of Admission: 11/26/21 21-year-old 0 female with last menstrual period of November 06 presents complaining of intermittent pelvic pain for 2 days. Worse on the left. She was in the emergency room 2 days ago and diagnosed with a right ovarian cyst and an enlarged left ovary. Her pain resolved and she was sent home on with pain medication to follow-up outpatient. Her pain crescendo tonight she came to the emergency room and had a repeat ultrasound which showed similar findings but no blood flow to the left ovary. She denies any nausea and vomiting other than nausea from the pain. She denies any c fevers or chills. She has never had similar pain in the past. Review of systems: General: Denies fevers or chills Cardiac: No chest pain or shortness of breath GI: Denies diarrhea, constipation or nausea vomiting Allergies: No known drug allergy Medications: Buspirone, Lamictal, and most recently she has been on Vicodin as needed for pain Surgical history: Ankle surgery Social history she denies any tobacco alcohol or drug Past medical history: Mood disorder, denies any other major medical issues including heart, lung, kidney or bleeding disorders Physical exam: See vitals General: Awake, alert, no acute distress but does appear mildly uncomfortable Skin: Warm dry and intact Extremities no clubbing cyanosis or edema Heart: S1-S2 regular rate and rhythm Lungs clear to auscultation bilaterally Abdomen: Nondistended, diffusely tender, some guarding bilateral lower abdomen worse on the left, no rebound Assessment & Plan Assessment/Plan (1) Torsion of left ovary: PLAN: Risk benefits alternatives to laparoscopic left ovarian torsion reversal, possible oophorectomy, possible ovarian cystectomy were reviewed. In addition, right ovarian cystectomy risk benefits and alternatives were reviewed depending on intraoperative findings. Questions were answered to her satisfaction she desires to proceed. (2) Right ovarian cyst:
[2021-11-26] MEDS: Bupivacaine Mpf 0.5% 30 ML VIAL (00:42)
--- NOTE | 2021-11-26 01:25 | OP.PCM_ITS ---
Problems Associated Problem List Diagnoses (1) Torsion of left ovary: Report of Operation Date of Procedure: 11/26/21 Pre-Operative Diagnosis: acute pelvic pain, left ovarian torsion, right ovarian cyst Post-Operative Diagnosis: left ovarian torsion, left ovarian cyst, normal right tube and ovary Surgery/Procedure Performed:: laparoscopic left salpingoophorectomy Description of Surgical Findings:: enlarged left tube and ovary filled with fluid and hemorrhagic clot, normal uterus, right tube and ovary, otherwise normal peritoneal cavity, appendix not visualized Surgeon: Stephany Duong consumer safety inspector: Alice Bailon Type of Anesthesia: General Anesthesiologist: Jose Antonio Mejia Special Medications: none Specimen's removed: left tube and ovary Drains: none Estimated Blood Loss (mL): 20 Fluids Replaced: 600 cc LR Description of Procedure: The patient was taken to the operating room where she was prepped and draped in the dorsolithotomy position. A weighted speculum was placed in the vagina and the anterior lip of the cervix was grasped with a tenaculum. The Brittany uterine manipulator was placed and the remainder of the instruments were removed from the vagina. Attention was turned to the abdomen. All port sites were infiltrated with 0.5% [place] before skin incisions were made. A 5 mm intraumbilical incision was made. The anterior abdominal wall was tented up with 2 towel clamps while a 5 mm blade less trocar and sleeve were directly inserted. Intraperitoneal placement was confirmed with the laparoscope. The pneumoperitoneum was created and the underlying abdominal contents were intact. The patient was placed in Trendelenburg. Right and left lower quadrant ports were placed under direct vis ualization lateral to the inferior epigastric vessels. The umbilical port was converted to a 12 mm port. The bowel was swept away and the above findings were noted. There was clot noted in the infundibulopelvic ligament to the left ovary. It was difficult to delineate the tube from the ovary. I am uncertain if there was a hydrosalpinx or hematosalpinx contributing to the issue there is definitely hemorrhagic clot in the ovary itself. The actual remaining ovarian tissue was difficult to delineate. The ovary was torsed twice on the pedicle. It was untorsed and after several minutes the clot still remained in the infundibulopelvic ligament no significant perfusion to the blackened ovarian tissue was noted. Decision was made to proceed with salpingo-oophorectomy. The ovary was difficult to delineate from the tube and I could not dissect the tube away from the ovary and save the tube. The LigaSure device was used to clamp seal and transect the antimesenteric portions of the left infundibulopelvic ligament after the ureter was identified and found to be below the level of the pedicle. Utero-ovarian ligament was clamped, sealed and transected. Excellent hemostasis of the pedicles was noted. The larger portion of the ovarian cyst or paratubal cyst was ruptured and clear fluid was irrigated out of the cyst and pelvis. Attempt was made to remove some of the hemorrhagic material from the remaining ovary. However it was very clotted and I was unable to remove a significant portion of this. The remaining portion of the ovary tube was placed in the Endo Catch bag and brought to the umbilical incision where it was removed. The pedicle was again reexamined and found to be hemostatic. The lateral ports removed under direct visualization and were there was no bleeding in the peritoneal cavity. The fascia in the umbilical port was then closed with 0 Vicryl in a running standard fashion. The skin incisions were closed with Monocryl suture in a subcuticular fashion and skin glue by the PERFORMANCE REPORTER with me present in the operating suite. The vaginal instruments were removed and the vaginal sweep was completed by me. The procedure was performed by me with assistance other than as dictated above. All sponge and needle counts were correct and the patient was taken to the recovery room in stable condition. * Grafts/Implants Used: none Procedure Start Time: 00:41 Procedure Stop Time: 01:23 Complications none Admit VTE Documentation VTE Present on Admission: No VTE Mechan Device Prophylaxis: SCD's VTE Pharm Prophylaxis ordered?: No Reason prophylaxis not ordered:: Procedure Not Indicated
[2021-11-26] MEDS: Lactated Ringers 1,000 ML 15 ML IV (01:52)
[2021-11-26] MEDS: Ketorolac 30 MG/ML Syringe IV (05:14)
[2021-11-26] MEDS: 0.9% Saline Lock 10 ML Syringe IV ×2 (05:14→12:11)
[2021-11-26] MEDS: Acetaminophen 500 MG Tablet 1000 MG PO ×2 (05:14→12:10)
[2021-11-26 06:35] LABS: Hematocrit 35.1 % (37-47); Hemoglobin 11.7 g/dL (12.0-15.0); Mean Corp Hgb Conc 33.3 g/dL (32-36); Mean Corpuscular Hgb 28.1 pg (27.0-32.0); Mean Corpuscular Volume 84.4 fL (81-99); Mean Platelet Vol. 9.2 fl (6.2-12.0); Platelet Count 221 K/mm3 (150-450); RBC Distribution Width CV 12.2 % (11.6-14.6); Red Blood Count 4.16 M/mm3 (4.2-5.4); White Blood Count 11.9 K/mm3 (4.4-11.0)
[2021-11-26] MEDS: Ondansetron ODT 4 MG Tablet PO (07:07)
[2021-11-26] MEDS: Docusate Sodium 100 MG Capsule PO (08:32)
[2021-11-26] MEDS: oxyCODONE 5 MG Tablet PO (08:32)
[2021-11-26] MEDS: buPROPion 100 MG Tablet 200 MG PO (08:32)
[2021-11-26] MEDS: proCHLORPERazine 10 MG/2 ML Vial 5 MG IV (12:10)
--- NOTE | 2021-11-26 13:05 | PCM.PROGNOTE ---
Subjective Subjective Pain controlled. Her parents have lots of questions. Objective Data Objective Data Vital Signs: Vital Signs Temp Pulse Resp BP Pulse Ox 98.3 F 93 18 104/58 L 96 11/26/21 12:06 11/26/21 12:06 11/26/21 12:06 11/26/21 12:06 11/26/21 12:06 Oxygen Delivery Method Room Air Weight: 169 lb 15.622 oz Body Mass Index (BMI) 28.6 Intake & Output: Intake and Output for Last 24 Hours 11/24/21 11/25/21 11/26/21 23:59 23:59 23:59 Intake Total 1000 / 1000 360 / 360 Output Total 75 / 75 Balance 1000 / 1000 285 / 285 Lab / Micro Data Result Diagrams: 11/26/21 05:50 Labs: Laboratory Results - last 24 hr 11/25/21 21:55: WBC 10.0, RBC 5.01, Hgb 13.9, Hct 41.4, MCV 82.6, MCH 27.7, MCHC 33.6, RDW Std Deviation 36.3, RDW Coeff of Tyree 12.1, Plt Count 292, MPV 9.4, Immature Gran % (Auto) 0.400, Neut % (Auto) 76.5 H, Lymph % (Auto) 18.2 L, [place] % (Auto) 4.6, Eos % (Auto) 0.0, Baso % (Auto) 0.3, Absolute Neuts (auto) 7.6, Absolute Lymphs (auto) 1.82, Nucleated RBC % 0 11/25/21 21:55: Serum , Qual NEGATIVE 11/25/21 22:50: Urine Color Yellow, Urine Clarity Clear, Urine pH 7.0, Ur Specific [place] 1.010, Urine Protein Negative, Urine Glucose (UA) Normal, Urine Ketones 150 A*, Urine Occult Blood Negative, Urine Nitrite Negative, Urine Bilirubin Negative, Urine Urobilinogen 4 H, Ur Leukocyte Esterase Negative, Urine RBC 0 SEEN, Urine WBC 0 SEEN, Ur Squamous Epith Cells 0-5 SEEN, Urine Bacteria 1+, Urine Mucus RARE 11/26/21 05:50: WBC 11.9 H, RBC 4.16 L, Hgb 11.7 L, Hct 35.1 L, MCV 84.4, MCH 28.1, MCHC 33.3, RDW Std Deviation 37.0, RDW Coeff of Tyree 12.2, Plt Count 221, MPV 9.2 Radiography Diagnostic Testing: Radiology Impression Transvaginal US 11/25/21 21:44 IMPRESSION: 1. Limited vascularity in the left ovary. Question torsion. 2. Normal vascularity of the right ovary. 3. Large cystic structure in the right adnexa adjacent to the ovary. 4. Prominent endometrium without other evidence of uterine abnormality. Electronically Signed: Barney Ramsey DO at 23:03 EDT Reading Location ID and State: [facility] / [place] Tel [phone], Service support , ADDENDUM: 11/25/21 2314 IMPRESSION: 1. Limited vascularity in the left ovary. Question torsion. 2. Normal vascularity of the right ovary. 3. Large cystic structure in the right adnexa adjacent to the ovary. 4. Prominent endometrium without other evidence of uterine abnormality. N.B. : The above Results were Read Back by Barney Ramsey DO to Dr. Bryon MD, and understanding confirmed on 11/25/2021 23:07:48 (ET). Electronically Signed: Barney Ramsey DO at 23:03 EDT Reading Location ID and State: [facility] / [place] Tel [phone], Service support , Physical Exam Const alert and oriented x3 Resp normal respiratory effort GI soft to palpation, non-tender and non-distended GI Narrative: incisions - c/d/i Extremity no calf tenderness Assessment & Plan Assessment/Plan (1) Torsion of left ovary: PLAN: POD#1 Answered patient & her parent's questions to the best of my ability. Will schedule a post-op visit with . Pain - Rx oxycodone given. Also advised on OTC meds. Heme - HDS, CBC reviewed D/c to home
--- NOTE | 2021-11-26 13:08 | PCM.DC ---
Discharge Instructions Diet Discharge Diet: No restrictions Activity Discharge Activity: May Shower May resume sexual activity in: 4 weeks Weight Bearing Status: Weight bearing as tolerated Dressing / Incision Call your doctor if your incision/area has: Continuous Slow Oozing, Sudden Increased Bleeding, Increased Pain/ Swelling, Increased Redness, Foul Smelling Discharge and Swelling at the incision site Call your doctor if you observe: Fever of 101 or Higher, Numbness or Tingling, Change in Color, Inability to urinate, Inability to have a bowel movement, Using more than 1 pad per hour, Shortness of breath, Fainting spells, Chest pain, Increased palpitations (irregular heartbeat), Calf discomfort and Uncontrolled pain Follow Up Care Please Follow Up With: Stephany Duong MD When: 1 week Test Results: Test results from this visit will be discussed in further detail at your follow-up appointment, if applicable. Discharge Plan Admission Admit Date/Time: 11/26/21 00:25 Primary Reason for Your Visit: Surgery for ovarian torsion Attending Provider: Stephany Duong Primary Care Provider: Care Physician,Daya Primary Discharge Orders/Prescriptions Prescriptions: New acetaminophen 500 mg Tablet 1,000 mg PO Q6 Qty: 0 RF: 0 oxycodone 5 mg Tablet 5 mg PO Q8H PRN (Reason: Pain Score 6-10) 4 Days Qty: 10 RF: 0 Continued bupropion HCl 100 mg tablet 200 mg PO DAILY RF: 0 lamotrigine 100 mg tablet 100 mg PO QHS RF: 0 ondansetron 4 mg tablet,disintegrating 4 mg PO Q8H PRN (Reason: nausea and vomiting) Qty: 20 RF: 0 No Action hydrocodone-acetaminophen [hydrocodone-acetaminophen] 1 TABLET tablet 1 tab PO Q6H PRN PRN (Reason: Pain) 3 Days Qty: 10 RF: 0 Referrals / Follow Up: Care Physician,No Primary [Primary Care Provider] - Disposition Disposition (needs filled in before D/C Order can be placed): Home, Self Care
== END 2021-11-26 13:14 | disposition home or self-care (01) ==
LOC: ED 23:48 → SDC 23:53 → ACINP 23:54 → SDC 11-26 00:25 → PCU 11-26 00:37
PROVIDERS: Admitting Provider Obstetrics & Gynecology; Emergency Provider Emergency Medicine; Visit Provider Obstetrics & Gynecology
PROC: (CPT 58661; principal; 2021-11-26 00:15)
DX: N83.512 Torsion of left ovary and ovarian pedicle (principal); F32.A Depression, unspecified; Z79.899 Other long term (current) drug therapy
CPT/HCPCS: 58661; 00840; 36415; 76830; 81001; 84703; 85025; 85027; 88305; 93976; 96374; 96375; 96376; 99218; 99284; J7030; J7120; A4216; G0378; J2405

== ENCOUNTER 2021-12-02 15:02 | Emergency (ER) | payer OTHER, SELFPAY ==
[2021-12-02 15:04] VITALS: BP 97/67; PULSE 92; RESP 14; TEMP 36.6; O2SAT 99; BMI 25.9
--- NOTE | 2021-12-02 15:46 | CT_ITS ---
EXAM: CT ABDOMEN WITH INTRAVENOUS CONTRAST CLINICAL INDICATION: periumbilical pain/infection OVARIAN TORSION W/ TUBE REMOVAL X1 WEEK AGO NOW HAVING PAIN,SWELLING,DISCHARGE AT UMBILICAL SURGERY SITE TECHNIQUE: Helically acquired images were obtained of the abdomen with intravenous contrast. This CT exam was performed using one or more of the following dose reduction techniques: automated exposure control, adjustment of the mA and/or kV according to patient size, and/or use of iterative reconstruction technique. This report was created using [employer] report Biopt[employer] technology. CONTRAST: IV 100mL Isovue-370 RADIATION DOSE: CTDIvol = 10.23 mGy, DLP = 373.06 mGy-cm COMPARISON: 11/23/2021 FINDINGS: LOWER THORAX: Unremarkable. Lung bases are clear. No cardiomegaly. No significant pericardial effusion. LIVER: Stable hypodense lesion in the medial right lobe of the liver. Hepatic MRI can better evaluate. GALLBLADDER AND BILE DUCTS: Unremarkable. No calcified gallstones. No gallbladder distention or wall edema. No intra- or extrahepatic biliary ductal dilation. PANCREAS: Unremarkable. No focal cystic or solid mass. SPLEEN: Unremarkable. Normal size without focal cystic or solid mass. ADRENALS: Unremarkable. No nodules. KIDNEYS AND URETERS: Unremarkable. Normal renal size and position. No hydronephrosis. STOMACH AND BOWEL: Unremarkable. No stomach or bowel distention. No focal inflammatory change. APPENDIX: The appendix is visualized and is normal. INTRAPERITONEAL SPACE: Unremarkable. No ascites or other fluid collection. No free air. BONES/JOINTS: Unremarkable. No suspicious lytic or blastic abnormality. SOFT TISSUES: There is an umbilical hernia containing fat and air. Focus of fluid and air along the left medial rectus muscle. This measures 15 mm. This may be Related to recent surgery. Small abscess cannot be excluded. There is no bowel involvement. There is no incarceration. There is no findings suggesting that this is causing a bowel obstruction. Air in the medial left rectus muscle. VASCULATURE: Unremarkable. Abdominal aorta is non-dilated. LYMPH NODES: No enlarged lymph nodes. CT/Abdomen WITH IV Contrast IMPRESSION: 1. Stable hypodense lesion in the medial right lobe of the liver. Hepatic MRI can better evaluate. 2. There is an umbilical hernia containing fat and air. Focus of fluid and air along the left medial rectus muscle. This measures 15 mm. This may be Related to recent surgery. Small abscess cannot be excluded. There is no bowel involvement. There is no incarceration. There is no findings suggesting that this is causing a bowel obstruction. Air in the medial left rectus muscle. Electronically Signed: Kirill Meier MD at 17:28 EDT ,
--- NOTE | 2021-12-02 15:48 | ED.VIS.GI ---
HPI HPI - GI History of Present Illness Chief Complaint: Wound Check Detail of Chief Complaint: abd pain Informant: patient Abdominal Pain/Flank Pain Onset: Weeks (1) Context: Gradual Onset Timing: Continuous Quality: Aching (sore) Location: - (umbilical) Current Severity: Mild Maximum Severity: Moderate Worsened by: - (palpation) Relieved by: - (leaving alone) Nausea/Vomiting/Emesis GI Symptom: Negative for Nausea and Vomiting Diarrhea/Melena/Hematochezia GI Symptom: Negative for Diarrhea, Melena and Hematochezia Associated Symptoms Associated Symptoms: Negative for Dysuria, Frequency, Hematuria and Urgency Narrative Narrative: Patient had left ovarian torsion and had an oophorectomy 1 week ago, the umbilical surgical incision has been gradually becoming more painful and red just caudal to this, and in the past day or 2 she has noticed some small amount of discharge from her umbilical incision. She saw urgent care yesterday, she was prescribed cefdinir which she has not yet started, as well as prednisone because since surgery she has had an itchy fine rash throughout her abdomen. PFSH PFS Medical History Depression Ovarian cyst Postoperative pain Torsion of left ovary Home Medications bupropion HCl 200 mg PO DAILY 11/23/21 [History Last Taken 11/21/21] lamotrigine 100 mg PO QHS 11/23/21 [History Last Taken 11/21/21] ondansetron 4 mg PO Q8H PRN #20 tab 11/24/21 [Rx Last Taken Unknown] oxycodone 5 mg PO Q8H PRN 4 Days #10 tab 11/26/21 [Rx Last Taken Unknown] tramadol 50 mg PO Q4H PRN PRN 2 Days #10 tab 12/02/21 [Rx Last Taken Unknown] Allergy/AdvReac Type Severity Reaction Status Date / Time No Known Allergies Allergy Verified 12/02/21 15:04 Surgical History History of ankle surgery Social History Smoking Status: Never smoker ROS ROS ED Constitutional Constitutional ED: Denies chills or fever(s) Eyes Eyes: Denies change in vision or diplopia ENT ENT ED: Denies rhinorrhea or sore throat Cardiovascular Cardiovascular: Denies chest pain or palpitations Respiratory/Chest Respiratory/Chest: Denies cough or dyspnea Gastrointestinal Gastrointestinal: Reports as per HPI and abdominal pain; Denies diarrhea, nausea or vomiting Genitourinary Genitourinary ED: Denies dysuria or hematuria Musculoskeletal Musculoskeletal: Denies back pain or neck pain Integumentary Reports as per HPI and wounds; Denies rash Neurologic Neurologic: Denies headache(s), paresthesias or weakness Psychiatric Psychiatric: Denies anxiety or suicidal thoughts EXAM Physical Exam Const Vital Signs: 12/02/21 15:04 Temperature 97.8 F Temperature Source Temporal Pulse Rate 92 Respiratory Rate 14 Blood Pressure 97/67 Blood Pressure Mean 77 Pulse Ox 99 Oxygen Delivery Method Room Air Positive well nourished and well developed General Appearance ED: well developed and NAD HEENT Reports moist mucous membranes normocephalic and atraumatic Eyes PERRL and EOMs intact bilaterally Neck full ROM and supple Resp normal respiratory effort and clear to auscultation bilaterally Cardio regular rate, regular rhythm and no murmurs GI non-distended GI Narrative: Umbilical surgical laparoscopic incision scabbed, no discharge expressible, tender. Just caudal to this, there is subcutaneous 3 cm diameter area consistent with abscess versus seroma pocket, with overlying mild erythema, all of this is tender. Otherwise, benign abdomen with healing surgical incisions otherwise. Auscultation: normoactive bowel sounds Palpation: soft Back/Spine no CVA tenderness General Back: other FROM Extremity normal to inspection General Extremety ED: Negative for edema, pulses abnormal or tenderness General Extremity: Negative for edema or pulses abnormal Neuro oriented x3, CN's II-XII intact bilaterally and no sensory deficits noted Sensorium / Orientation: awake and alert Motor Exam: strength 5/5 throughout Skin Skin Narrative: See abdominal exam for umbilical wound description. Fine nontender maculopapular rash throughout trunk protruding into flanks. No cellulitis. MDM MDM MDM Narrative Medical decision making narrative: Discussed differential with patient here, I agree with antibiotics however if there is an abscess that needs to be drained. Question is whether it is an abscess or seroma. We discussed ways to sort this out, including needle aspiration versus CT scan. She refused needle aspiration and preferred a CT scan which was done, limited CT abdomen of this area. It does show basically a very small abscess, there is only 15 mm. It is read as small area of umbilical hernia, but I think alternatively it actually is a small abscess. Looking at the images, this is not amenable to simple needle aspiration since it is close to the rectus muscle and protrudes through only a very small portion of the abdominal wall. I discussed with the [facility] gynecology team, they state that they do not currently have access to look at the images but are comfortable with her being discharged home on antibiotics and analgesics to follow-up closely as an outpatient, patient is comfortable with that plan. Lab Data Attestation: I reviewed the patient's lab results. Labs: Laboratory Results - last 24 hr 12/02/21 12/02/21 16:10 16:10 WBC 6.6 RBC 4.90 Hgb 13.6 Hct 41.5 MCV 84.7 MCH 27.8 MCHC 32.8 RDW Std Deviation 37.2 RDW Coeff of Tyree 12.2 Plt Count 270 MPV 9.8 Immature Gran % (Auto) 0.300 Neut % (Auto) 62.9 Lymph % (Auto) 27.2 [place] % (Auto) 5.9 Eos % (Auto) 3.2 Baso % (Auto) 0.5 Absolute Neuts (auto) 4.2 Absolute Lymphs (auto) 1.79 Nucleated RBC % 0 Sodium 140 Potassium 3.9 Chloride 107 Carbon Dioxide 26.0 Anion Gap 7 BUN 11 Creatinine 0.76 Estim Creat Clear Calc 110.54 Est GFR (MDRD) Af Amer 124 Est GFR (MDRD) Non-Af 102 BUN/Creatinine Ratio 14.4 Glucose 82 Calcium 9.3 Radiography Diagnostic Testing: Clinical Impression(s) from Imaging Studies Abdomen CT 12/02/21 15:46 IMPRESSION: 1. Stable hypodense lesion in the medial right lobe of the liver. Hepatic MRI can better evaluate. 2. There is an umbilical hernia containing fat and air. Focus of fluid and air along the left medial rectus muscle. This measures 15 mm. This may be Related to recent surgery. Small abscess cannot be excluded. There is no bowel involvement. There is no incarceration. There is no findings suggesting that this is causing a bowel obstruction. Air in the medial left rectus muscle. Electronically Signed: Kirill Meier MD at 17:28 EDT , Discharge Plan Triage Chief Complaint: Wound Check ED Provider: Georges Covington Dx/Rx/DC Orders Clinical Impression: Abscess of postoperative wound of abdominal wall, Allergic dermatitis Instructions: ED Abscess Antibiotic Treatment Only Prescriptions: New tramadol 50 MG tablet 50 mg PO Q4H PRN PRN (Reason: Pain) 2 Days Qty: 10 RF: 0 No Action bupropion HCl 100 mg tablet 200 mg PO DAILY RF: 0 lamotrigine 100 mg tablet 100 mg PO QHS RF: 0 ondansetron 4 mg tablet,disintegrating 4 mg PO Q8H PRN (Reason: nausea and vomiting) Qty: 20 RF: 0 oxycodone 5 mg Tablet 5 mg PO Q8H PRN (Reason: Pain Score 6-10) 4 Days Qty: 10 RF: 0 Primary Care Provider: Montana Davis Referrals: Montana Davis MD [Primary Care Provider] - Stephany Duong MD [STAFF PHYSICIAN] - As soon as possible (Call tomorrow morning for appointment) Activity Restrictions/Additional Instructions: Take the cefdinir antibiotic that you are already prescribed Disposition Disposition: Home, Self Care
[2021-12-02] MEDS: 0.9% Normal Saline 1,000 ML 1000 ML IV (16:17)
[2021-12-02 16:24] LABS: Absolute Lymphocyte Count 1.79 X10^3/uL (0.83-4.51); Absolute Neutrophil Count 4.2 X10^3/uL (2.0-7.7); Basophil# 0.03 X10^3/uL; Basophil% 0.5 % (0-1); Eosinophil# 0.21 X10^3/uL; Eosinophils% 3.2 % (0-5); Hematocrit 41.5 % (37-47); Hemoglobin 13.6 g/dL (12.0-15.0); Lymphocyte # 1.79 X10^3/ul (0.83-4.51); Lymphocyte % 27.2 % (19-41); Mean Corp Hgb Conc 32.8 g/dL (32-36); Mean Corpuscular Hgb 27.8 pg (27.0-32.0); Mean Corpuscular Volume 84.7 fL (81-99); Mean Platelet Vol. 9.8 fl (6.2-12.0); Monocyte# 0.39 X10^3/uL; Monocyte% 5.9 % (0-10); NRBC Flagged by Analyzer 0 % (0-5); Neutrophil # 4.15 X10^3/uL (2.7-7.7); Neutrophil % 62.9 % (47-70); Platelet Count 270 K/mm3 (150-450); RBC Distribution Width CV 12.2 % (11.6-14.6); RBC Distribution Width SD 37.2 fl (35.1-43.9); White Blood Count 6.6 K/mm3 (4.4-11.0)
[2021-12-02 16:33] LABS: Anion Gap 7 (5-15); BUN 11 mg/dL (7-18); BUN/Creat Ratio 14.4 RATIO (10-20); Calcium,Total 9.3 mg/dL (8.5-10.1); Chloride 107 mmol/L (98-107); Creatinine, Serum 0.76 mg/dL (0.55-1.02); EST Glomerular Filtration Rate 102 mL/min (>60); Est Glom Filt Rate - Afr Amer 124 mL/min (>60); Estimated Creatinine Clearance 110.54 ml/min; Glucose 82 mg/dL (74-106); Potassium 3.9 mmol/L (3.5-5.1); Sodium Level 140 mmol/L (136-145)
[2021-12-02] MEDS: traMADol 50 MG Tablet PO (18:34)
== END 2021-12-02 18:40 | disposition home or self-care (01) ==
PROVIDERS: Emergency Provider Emergency Medicine; PCP Pediatrics; Visit Provider Emergency Medicine
DX: S31.109A Unspecified open wound of abdominal wall, unspecified quadrant without penetration into peritoneal cavity, initial encounter (principal); T81.49XA Infection following a procedure, other surgical site, initial encounter; L02.211 Cutaneous abscess of abdominal wall; F32.A Depression, unspecified; Z79.899 Other long term (current) drug therapy; X58.XXXA Exposure to other specified factors, initial encounter
CPT/HCPCS: 74160; 80048; 85025; 96360; 99285; J7030; Q9967